=== PATIENT | female | born 1970 | race Hispanic/Latino ===

== ENCOUNTER 2020-11-29 10:38 | Day surgery (SDC) | payer OTHER ==
[~2020-11-29 10:38] MED LIST: ceFAZolin/Water 2 GM/20 ML 2 GM/20 ML SYRINGE IV NR
[2020-11-29] MEDS ORDERED: MAGNESIUM OXIDE 400 MG TAB PO NR (11:28)
[2020-11-29] MEDS ORDERED: HYDROmorphone 1 MG/1 ML INJ IV PRN ×2 (11:28)
[2020-11-29] MEDS ORDERED: ONDANSETRON 4 MG/2 ML INJ IV PRN (11:28)
[2020-11-29] MEDS ORDERED: ACETAMINOPHEN 500 MG TAB PO NR (11:28)
[2020-11-29] MEDS ORDERED: PHENYLEPHRINE/NS 1,000 MCG/10 ML SYRINGE (OR USE) IV ONE (11:30)
[2020-11-29] MEDS ORDERED: LACTATED RINGERS 1,000 ML IV SCH (11:30)
--- NOTE | 2020-11-29 11:30 | Anesthesia Day of Surgery ---
Anesthesia Day of Surgery - Day of Surgery Patient Examined: Yes Patient H&P Reviewed: Yes Patient is NPO: Yes Cardiac Clearance: Yes (Medical Clearance)
[2020-11-29] MEDS ORDERED: CELECOXIB 200 MG CAP ONE (11:33)
--- NOTE | 2020-11-29 11:34 | Anesthesia Consultation ---
Anesthesia Consult and Med Hx Date of service: 11/29/20 - Airway Anesthetic Teeth Evaluation: Good ROM Head & Neck: Adequate Mental/Hyoid Distance: Adequate Mallampati Class: Class II Intubation Access Assessment: Good - Pre-Operative Health Status ASA Pre-Surgery Classification: ASA3 Proposed Anesthetic Plan: General - Pulmonary Hx Smoking: Yes (STOPPED X 4 MONTHS) Hx Respiratory Symptoms: No (+2FS) SOB: No (May have had COVID two months. Negative now) Hx Sleep Apnea: No (NERIS PRE SCREEN HIGH RISK) - Cardiovascular System Hx Hypertension: Yes (X 1 YR) - Central Nervous System Hx Seizures: Yes (STRESS INDUCED SEIZURES-LAST ONE 11/2019) Hx Psychiatric Problems: No - Endocrine Hx Renal Disease: Yes (Hx stones) Hx End Stage Renal Disease: No Hx Liver Disease: No Hx Non-Insulin Dependent Diabetes: No Hx Hypothyroidism: Yes (DAILY MEDS) - Hematic Hx Anemia: Yes (NOT RECENT) - Other Systems Hx Cancer: No Hx Obesity: Yes
[2020-11-29] MEDS ORDERED: ONDANSETRON 4 MG/2 ML INJ IV NR (11:41)
[2020-11-29] MEDS ORDERED: MIDAZOLAM 2 MG/2 ML INJ IV NR (12:00)
[2020-11-29] MEDS ORDERED: CELECOXIB 200 MG CAP PO NR (12:00)
[2020-11-29] MEDS ORDERED: EPINEPHrine 1 MG/10 ML SYRINGE ONE (12:19)
[2020-11-29] MEDS ORDERED: EPINEPHrine 30 MG/30 ML INJ IV ONE (12:20)
[2020-11-29] MEDS ORDERED: LIDOCAINE (1%) 10 MG/1 ML VIAL 20 ML MDV ONE (12:21)
[2020-11-29] MEDS ORDERED: BUPIVACAINE/PF (0.25%) 2.5 MG/ML 30 ML VIAL INFILTRATI ONE (12:21)
[2020-11-29] MEDS ORDERED: fentaNYL 100 MCG/2 ML INJ ONE (12:24)
[2020-11-29] MEDS ORDERED: propofoL 200 MG/20 ML VIAL IV ONE (12:24)
[2020-11-29] MEDS ORDERED: LIDOCAINE MPF (2%) 20 MG/1 ML VIAL 5 ML ONE (12:26)
[2020-11-29] MEDS ORDERED: LIDOCAINE (1%) 10 MG/1 ML VIAL 20 ML MDV INFILTRATI ONE (13:10)
[2020-11-29] MEDS ORDERED: ePHEDrine SULFATE 50 MG/1 ML INJ ONE (13:10)
[2020-11-29] MEDS ORDERED: SODIUM CHLORIDE 0.9% IRRIG SOLN 3000 ML IR ONE (13:12)
[2020-11-29] MEDS ORDERED: BUPIVACAINE-EPINEPHRINE/PF 0.25%-1:200,000 (30 ML) VIAL INFILTRATI ONE (13:15)
[2020-11-29] MEDS ORDERED: HYDROmorphone 1 MG/1 ML INJ ONE (13:22)
--- NOTE | 2020-11-29 14:11 | Short Stay Summary ---
Short Stay Documentation Date of service: 11/29/20 - History H&P: obtained from office - Allergies and Medications Current Medications: Allergies No Known Allergies Allergy (Verified 11/24/20 17:07) Home Medications Medication Instructions Recorded Confirmed Last Taken Type Levothyroxine Sodium [Synthroid] 175 mcg PO DAILY 11/24/20 11/29/20 11/29/20 05:00 History amLODIPine 5 mg PO BID 11/24/20 11/29/20 11/28/20 04:00 History hydroCHLOROthiazide [HCTZ] 25 mg PO QDAY 11/24/20 11/29/20 11/28/20 04:00 History levETIRAcetam [Keppra TAB] 250 mg PO DAILY 11/24/20 11/29/20 11/29/20 05:00 History lisinopriL [Zestril TAB] 10 mg PO QDAY 11/24/20 11/29/20 11/28/20 04:00 History Active Medications Acetaminophen (Acetaminophen 500 Mg Tab) 1,000 mg PO ONCE NR Stop: 11/29/20 23:59 Last Admin: 11/29/20 11:50 Dose: 1,000 mg Documented by: Celecoxib (Celecoxib 200 Mg Cap) 400 mg PO PREOP NR Stop: 11/29/20 23:59 Last Admin: 11/29/20 11:50 Dose: 400 mg Documented by: Hydromorphone HCl (Hydromorphone 1 Mg/1 Ml Inj) 0.25 mg IV Q10MIN PRN PRN Reason: Pain, Moderate (4-6) Stop: 11/29/20 23:59 Hydromorphone HCl (Hydromorphone 1 Mg/1 Ml Inj) 0.5 mg IV Q10MIN PRN PRN Reason: Pain , Severe (7-10) Stop: 11/29/20 23:59 Cefazolin Sodium (Ancef/Sterile Water 2 Gm/20 Ml) 2 gm in 20 mls @ 80 mls/hr IV PREOP NR; Protocol Stop: 11/29/20 23:00 Lactated Ringer's (Lactated Ringers) 1,000 mls @ 125 mls/hr IV DIRECT KHUSHI Last Admin: 11/29/20 11:50 Dose: 125 mls/hr Documented by: Magnesium Oxide (Magnesium Oxide 400 Mg Tab) 400 mg PO ONCE NR Stop: 11/29/20 23:59 Last Admin: 11/29/20 11:50 Dose: 400 mg Documented by: Midazolam HCl (Midazolam 2 Mg/2 Ml Inj) 2 mg IV PREOP NR Stop: 11/29/20 23:59 Last Admin: 11/29/20 12:05 Dose: 2 mg Documented by: Ondansetron HCl (Ondansetron 4 Mg/2 Ml Inj) 4 mg IV ONCE PRN PRN Reason: Nausea And Vomiting Ondansetron HCl (Ondansetron 4 Mg/2 Ml Inj) 4 mg IV ONCE NR Stop: 11/29/20 16:00 Last Admin: 11/29/20 12:00 Dose: 4 mg Documented by: - Brief post op/procedure progress note Date of procedure: 11/29/20 Pre-op diagnosis: persistent right knee pain medial meniscus tear Post-op diagnosis: same Procedure: right knee arthroscopy partial medial meniscectomy Anesthesia: GETA Findings: complex tear anterior and posterior horn medial meniscus Surgeon: CAITLIN BAILEY Estimated blood loss: minimal Pathology: none Condition: stable - Hospital course Hospital course: no perioperative complications - Disposition Condition at discharge: Good Disposition: DC-01 TO HOME OR SELFCARE - Discharge Diagnoses (1) Right knee pain Status: Acute (2) Right knee pain Status: Acute Short Stay Discharge Plan Follow up with: PRIMARY CARE, [Primary Care Provider] - 7 Days
[2020-11-29] MEDS ORDERED: oxyCODONE /ACETAMINOPHEN 5-325MG TAB ONE (14:42)
--- NOTE | 2020-11-29 14:46 | Post Anesthesia Evaluation ---
- Post Anesthesia Evaluation Patient Participated: Yes Airway Patent: Yes Stable Respiratory Function: Yes Nausea/Vomiting: No Temp > 96.8F: Yes Pain Manageable: Yes Adequeate Hydration: Yes Anesthesia Complications: No Block Receding Appropriately: Not Applicable Patient on Ventilator: No
[2020-11-29] MEDS ORDERED: oxyCODONE /ACETAMINOPHEN 5-325MG TAB PO ONE (15:00)
--- NOTE | 2020-11-29 15:08 | Operative Report ---
PREOPERATIVE DIAGNOSES: Persistent right knee pain, medial meniscus tear. POSTOPERATIVE DIAGNOSES: Persistent right knee pain, large complex tear located within the posterior and anterior horns of the medial meniscus, grade 2 articular cartilage loss of the weightbearing portion of the medial femoral condyle as well as central aspect of the patella and trochlea. OPERATIVE PROCEDURE: Right knee arthroscopy, partial medial meniscectomy. SURGEON: Jamshid Tong M.D. SPORT PSYCHOLOGIST: None. PREOPERATIVE ANTIBIOTICS: Ancef 2 g IV within 1 hour of skin incision. DVT PROPHYLAXIS: Open toe thigh-high compression stockings and SCD pumps to the nonoperative left lower extremity. OPERATIVE COMPLICATIONS: None. ESTIMATED BLOOD LOSS: Minimal. OPERATIVE HISTORY AND PHYSICAL: This is a 50-year-old female who has had persistent progressive worsening right knee pain with mechanical symptoms and marked loss of function. The patient failed to improve despite extensive nonoperative treatment. Treatment alternatives were discussed, surgical, nonsurgical including risks and benefits of both. After a long lengthy discussion, the patient opted to proceed with operative intervention. This would entail a right knee arthroscopy, partial medial meniscectomy and surgery as indicated. The risks of which were discussed to include but not exclusive of infection, blood loss, nerve damage, loss of range of motion and persistent pain. Again, the patient expressed understanding and all of her questions were answered and she wished to proceed with operative intervention. DESCRIPTION OF PROCEDURE: The patient was seen in the preoperative holding room area, at which point, informed consent was reviewed and appropriate right lower extremity was identified and then marked. The patient was then brought back to the operating room and placed supine on the standard operating room table, at which point, general anesthesia was administered and an LMA tube was inserted. After confirmation of adequate general anesthesia and checking appropriate placement of LMA tube, we then made sure that all bony prominences were well padded, make sure there were no wrinkles in the compression stockings in the left lower extremity and SCD pumps were applied to the left lower extremity. The right lower extremity was then examined under anesthesia. The patient was seen to have full range of motion. There was no evidence of instability with a negative Cecy and negative anterior drawer, negative posterior drawer and no varus or valgus instability at 0 as well as 30 degrees of flexion. Following the examination under anesthesia, the right lower extremity was then prepped and draped in the usual sterile fashion. Prepping and draping, a timeout was called and appropriate right lower extremity was identified, which again had been marked in the preoperative holding room area. We first infiltrated the knee with 30 mL of 0.25% bupivacaine without epinephrine as well as 30 mL of 2% Xylocaine without epinephrine. The patient tolerated this well and there were no complications. Following this, our procedure by first making a standard anterolateral portal. Once the portal was established, the cannula with the blunt trocar was inserted into the intraarticular aspect of the knee joint. This went without difficulty or damage to the articular cartilage. Once in place, the arthroscopic camera was placed in the medial compartment, we established anterior medial portal by first inserting an 18-gauge spinal needle under direct arthroscopic visualization. Once confirmed to be superior to medial meniscus, a #15 blade was then used to establish anteromedial portal. Once the portal was established, the blunt trocar was inserted to widen the portal site. Following an arthroscopic probe, we began a diagnostic arthroscopy in the medial compartment. The patient had a large complex tear located within the posterior horn of the medial meniscus. There was grade 2/3 articular cartilage wear of almost the entire weightbearing surface of the medial femoral condyle was also a complex tear located within the anterior horn of the medial meniscus. The tear was irreparable and we performed a partial medial meniscectomy in standard fashion using a series of basket punches and a 4.0 meniscal shaver down to a nice smooth stable healthy remaining border, all in all removing the white-white as well as white-red zones. Once completed, the remaining red-red zone of the meniscus both posterior and anterior horns were probed and seen to be stable. The knee was placed through a full range of motion, we saw there was good excellent stability of the remaining meniscus. Inspection of the notch showed the ACL and PCL to be intact and stable when probed. Inspection of lateral compartment showed grade 1 articular cartilage loss of the weightbearing surface of the lateral femoral condyle. There were no tears in the anterior or posterior horn of the lateral meniscus. The popliteus was seen to be intact and stable when probed. Inspection of the medial and lateral gutters showed small osteophytes; however, no loose bodies present. Inspection of patellofemoral joint showed to be grade 2/3 articular cartilage loss to the central aspect of the patella and trochlea. There was normal patellofemoral tracking. There was no evidence of a pathologic medial plica. Inspection of the suprapatellar pouch showed to be free and clear of all loose bodies. Arthroscopic camera was then placed in the posterior aspect of the knee adjacent to the cruciate ligaments femoral condyle. Once into the posterior aspect of the knee, we saw that there were no root tears of the menisci and there were no loose bodies present. Arthroscopic camera was then removed from the posterior aspect of the knee. Arthroscopic pump was then turned off to make sure there was good hemostasis and once this was confirmed, the extraneous fluid was suctioned from the knee using the arthroscopic cannula. Following this, all the arthroscopic instrumentation was removed. The 2 portal sites were closed with 3-0 nylon in simple fashion. Adaptic, 4 x 4s, ABD, sterile cast padding and Douglas wrap was applied. The patient was then awakened from general anesthesia without complications to the recovery room in stable condition and standard postoperative orders were written. JOB# [id number] RUDI/JOSE M
[2020-11-29 18:34] VITALS: BP 112/80
== END 2020-11-29 10:39 | disposition home or self-care (01) ==
LOC: OR 10:38
PROVIDERS: ATTEND Orthopaedic Surgery
DX: S83.231A Complex tear of medial meniscus, current injury, right knee, initial encounter (principal); I10 Essential (primary) hypertension; E03.9 Hypothyroidism, unspecified; E78.5 Hyperlipidemia, unspecified; E66.9 Obesity, unspecified; Z98.51 Tubal ligation status; Z87.442 Personal history of urinary calculi; Z87.440 Personal history of urinary (tract) infections; Z98.890 Other specified postprocedural states; Z83.3 Family history of diabetes mellitus; Z79.899 Other long term (current) drug therapy; Z87.891 Personal history of nicotine dependence; Z90.49 Acquired absence of other specified parts of digestive tract; Z68.42 Body mass index [BMI] 45.0-49.9, adult; Z82.49 Family history of ischemic heart disease and other diseases of the circulatory system; Z86.2 Personal history of diseases of the blood and blood-forming organs and certain disorders involving the immune mechanism; X58.XXXA Exposure to other specified factors, initial encounter; Y93.89 Activity, other specified; Y92.89 Other specified places as the place of occurrence of the external cause; Y99.8 Other external cause status
CPT/HCPCS: 29881; A4217; J0171; J0690; J1170; J2250; J2370; J2405; J2704; J3010; J7120